=== PATIENT | male | born 1965 | race Caucasian/White ===

== ENCOUNTER 2021-11-27 22:44 | Emergency (ER) | payer OTHER ==
[2021-11-27] MEDS ORDERED: BACTRIM DS TABLET PO ONE ×2 (23:45→23:49)
--- NOTE | 2021-11-27 23:47 | ERPHSYRPT ---
- History of Present Illness Time Seen by Provider: 11/27/21 22:50 Source: patient Exam Limitations: no limitations Patient Subjective Stated Complaint: I was moving some brush around and saw a spider on my arm move really fast, I got bit and now my left hand is swollen. Triage Nursing Assessment: pt ambulated into ER without diff. Pt was moving brush and saw a black spider on his hand and it moved quickly. Pt had a red pinpoint area to left wrist from bite, left hand is swollen. Pt is able to move his fingers and hand. Physician History: Patient is a 56-year-old male presents to our ED for evaluation of skin in fection to his left distal forearm. Patient states he was moving brush and saw a black spider run across his arm when he felt a bite. Injury occurred approximately 4 PM. The bite was at the left wrist. Patient states his left hand is now swollen. No active pain at this time. Tetanus is not up-to-date. No associated trauma. No fever. No nausea vomiting or diaphoresis. Symptoms are mild to moderate in intensity. No specific worsening improving factors. Patient voices no other complaints or concerns at this time. Portions of this note were created with voice recognition technology. There may be grammatical, spelling, punctuation or sound alike errors Timing/Duration: today Severity: moderate Modifying Factors: Improves With: nothing Associated Symptoms: denies symptoms Allergies/Adverse Reactions: No Known Drug Allergies Allergy (Verified 11/27/21 22:56) Home Medications: Simvastatin 20Mg [Zocor 20Mg] 1 tab PO HS 11/27/21 [History] Hx Tetanus, Diphtheria Vaccination/Date Given: No Hx Influenza Vaccination/Date Given: No Hx Pneumococcal Vaccination/Date Given: No Immunizations Up to Date: No Travel Risk - International Travel Have you traveled outside of the country in past 3 weeks: No - Coronavirus Screening Are you exhibiting any of the following symptoms?: No Close contact with a COVID-19 positive Pt in past 14-21 Days: No - Vaccine Status Have you recieved a Covid-19 vaccination: No - Review of Systems Constitutional: No Symptoms, No Fever, No Chills Eyes: No Symptoms Ears, Nose, & Throat: No Symptoms Respiratory: No Symptoms, No Cough, No Dyspnea Cardiac: No Symptoms, No Chest Pain, No Edema, No Syncope Abdominal/Gastrointestinal: No Symptoms, No Abdominal Pain, No Nausea, No Vomiting, No Diarrhea Genitourinary Symptoms: No Dysuria Musculoskeletal: No Symptoms, No Back Pain, No Neck Pain Skin: No Symptoms, No Rash Neurological: No Symptoms, No Dizziness, No Focal Weakness, No Sensory Changes Psychological: No Symptoms Endocrine: No Symptoms Hematologic/Lymphatic: No Symptoms Immunological/Allergic: No Symptoms All Other Systems: Reviewed and Negative - Past Medical History Pertinent Past Medical History: Yes Neurological History: No Pertinent History ENT History: No Pertinent History Cardiac History: High Cholesterol, Hypertension Respiratory History: No Pertinent History Endocrine Medical History: No Pertinent History Musculoskeletal History: No Pertinent History GI Medical History: No Pertinent History History: No Pertinent History Psycho-Social History: No Pertinent History Male Reproductive Disorders: No Pertinent History Other Medical History: NO HX OF SX. - Past Surgical History Past Surgical History: No Neuro Surgical History: No Pertinent History Cardiac: No Pertinent History Respiratory: No Pertinent History Gastrointestinal: No Pertinent History Genitourinary: No Pertinent History Musculoskeletal: No Pertinent History Male Surgical History: No Pertinent History - Social History Smoking Status: Never smoker Exposure to second hand smoke: No Drug Use: none Patient Lives Alone: No - Nursing Vital Signs Nursing Vital Signs: Initial Vital Signs Temperature 97.6 F 11/27/21 22:49 Pulse Rate 66 11/27/21 22:49 Respiratory Rate 16 11/27/21 22:49 Blood Pressure 153/100 11/27/21 22:49 O2 Sat by Pulse Oximetry 97 11/27/21 22:49 Pain Scale Pain Intensity 0 - Physical Exam General Appearance: no apparent distress, alert Eye Exam: PERRL/EOMI, eyes nml inspection Ears, Nose, Throat Exam: normal ENT inspection, TMs normal, pharynx normal, moist mucous membranes Neck Exam: normal inspection, non-tender, supple, full range of motion Respiratory Exam: normal breath sounds, lungs clear, airway intact, No respiratory distress Cardiovascular Exam: regular rate/rhythm, normal heart sounds, normal peripheral pulses Gastrointestinal/Abdomen Exam: soft, normal bowel sounds, No tenderness, No mass Back Exam: normal inspection, normal range of motion, No CVA tenderness, No vertebral tenderness Extremity Exam: normal inspection, normal range of motion, pelvis stable, other (Minimal swelling to dorsum of left hand. There is a punctate wound at the left dorsal wrist. No lymphangitis. Early cellulitis. The involved extremities neurovascular intact distally. Current compartments are soft. Cap refill less than 2 seconds. Radial pulse palpable.) Neurologic Exam: alert, oriented x 3, cooperative, normal mood/affect, nml cerebellar function, nml station & gait, sensation nml, No motor deficits Skin Exam: normal color, warm, dry, other (No foreign body or stinger observed at site of punctate wound.), No rash Lymphatic Exam: No adenopathy SpO2 Interpretation: normal SpO2: 97 O2 Delivery: Room Air - Course Nursing assessment & vital signs reviewed: Yes Ordered Tests: Medication Summary Discontinued Medications Generic Name Dose Route Start Last Admin Trade Name Freq PRN Reason Stop Dose Admin Diphtheria/Tetanus/Acell Pertussis 0.5 ml 11/27/21 23:48 Tdap --Diph,Pertuss(Acell),Tet Vac/Pf 0.5 Ml Vial IM 11/27/21 23:49 .ONCE ONE Trimethoprim/Sulfamethoxazole 1 tab 11/27/21 23:45 11/27/21 23:50 Smz/Tmp Ds Tablet 1 Tablet PO 11/27/21 23:46 1 tab STAT ONE Administration Trimethoprim/Sulfamethoxazole Confirm 11/27/21 23:49 Smz/Tmp Ds Tablet 1 Tablet Administered 11/27/21 23:50 Dose 1 tab PO .STK-MED ONE - Progress Progress: improved Progress Note: 56-year-old male presents with what he believes is a spider bite to his left distal forearm/wrist. Injury occurred today. There is some swelling at the left hand. The extremity is neurovascular tact distally. All tendon functions intact. No lymphangitis. Tetanus not up-to-date. We updated patient's tetanus in our ED. He received a dose of Bactrim as well. He prescription for Bactrim was forwarded to patient's pharmacy. Patient advised to follow-up with his primary care doctor within 48 hours for reevaluation. Patient agreed to do so. He voices no other complaints or concerns at this time. Patient declined pain medication. Portions of this note were created with voice recognition technology. There may be grammatical, spelling, punctuation or sound alike errors 11/27/21 23:57 Counseled pt/family regarding: diagnosis, need for follow-up - Departure Departure Disposition: Home Clinical Impression: Insect bite, Cellulitis Condition: Stable Critical Care Time: No Referrals: HO BERNAL MD [Primary Care Provider] - Follow up/PCP as directed Additional Instructions: Discharge/Care Plan ADRIAN HAN was seen on 11/27/21 in the Emergency Room. The patient was counseled regarding Diagnosis,Lab results, Imaging studies, need for follow up and when to return to the Emergency Room. Prescriptions given: Discharge Note I have spoken with the patient and/or caregivers. I have explained the patient's condition, diagnosis and treatment plan based on the information available to me at this time. I have answered the patient's and/or caregiver's questions and addressed any concerns. The patient and/or caregivers have as good understanding of the patient's diagnosis, condition and treatment plan as can be expected at this point. The vital signs have been stable. The patient's condition is stable and appropriate for discharge from the emergency department. The patient will pursue further outpatient evaluation with the primary care physician or other designated or consulting physician as outlined in the discharge instructions. The patient and/or caregivers are agreeable to this plan of care and follow-up instructions have been explained in detail. The patient and/or caregivers have received these instruction. The patient/and or caregivers are aware that any significant change in condition or worsening of symptoms should prompt an immediate return to this or the closest emergency department or call 911. Prescriptions: Smz/Tmp Ds Tablet [Bactrim Ds Tablet] 1 udtab PO BID 7 Days #14 tablet
[2021-11-27] MEDS ORDERED: Adacel Vial IM ONE ×2 (23:48→23:51)
[2021-11-28 00:08] VITALS: BP 142/74; PULSE 61; O2SAT 95
== END 2021-11-28 00:05 | disposition home or self-care (01) ==
LOC: ED 22:44
DX: S60.862A Insect bite (nonvenomous) of left wrist, initial encounter (principal); L03.114 Cellulitis of left upper limb; W57.XXXA Bitten or stung by nonvenomous insect and other nonvenomous arthropods, initial encounter; Y93.H2 Activity, gardening and landscaping; E78.5 Hyperlipidemia, unspecified; I10 Essential (primary) hypertension; Z79.899 Other long term (current) drug therapy; Z28.310 Unvaccinated for COVID-19
CPT/HCPCS: 90471; 90715; 99282; A9270-GY